=== PATIENT | male | born 1995 ===

== ENCOUNTER 2018-01-22 20:28 | Emergency (ER) | payer SELFPAY ==
[~2018-01-22] VITALS: Ht 177.8 cm; Wt 72.6 kg
[2018-01-22] MEDS ORDERED: Keflex500 MG PO (21:19)
[2018-01-22] MEDS ORDERED: Bactrim Ds Tab1 EACH PO (21:19)
== END 2018-01-22 21:59 | disposition home or self-care (01) ==
LOC: ER 20:28
DX: L03.114 Cellulitis of left upper limb (principal); Z91.030 Bee allergy status; F17.200 Nicotine dependence, unspecified, uncomplicated
CPT/HCPCS: 99283